=== PATIENT | female | born 1965 ===

== ENCOUNTER 2017-06-14 05:17 | Emergency (ER) | payer SELFPAY ==
[~2017-06-14] VITALS: Ht 157.5 cm; Wt 55.0 kg
[2017-06-14 05:26] VITALS: BP 125/75; PULSE 94; RESP 18; TEMP 98.7; O2SAT 100
--- NOTE | 2017-06-14 06:33 | RADRPT ---
EXAM DATE/TIME: 06/14/2017 06:08 [place] COMPARISON: No previous studies available for comparison. INDICATIONS : Right foot pain from a fall. MEDICAL HISTORY : None. SURGICAL HISTORY : None. ENCOUNTER: Initial ACUITY: 1 day PAIN SCORE: 8/10 LOCATION: Right foot FINDINGS: 3 views of the right foot demonstrate an oblique minimally displaced fracture of the fifth digit prox imal phalanx. Fracture line extends through the distal medial metaphysis and epiphysis and extends in to the interphalangeal joint. No other fracture or dislocation is identified. Lisfranc joint appears intact. No soft tissue abnormality or radiopaque foreign body is identified. CONCLUSION: There is an acute minimally displaced oblique fracture of the fifth distal digit proximal phalanx, as above. Todd Tristan MD on June 14, 2017 at 6:29 Board Certified Radiologist. This report was verified electronically.
--- NOTE | 2017-06-14 06:37 | PD ---
HPI Chief Complaint: Injury Time Seen by Provider: 05:33 Travel History International Travel<30 days: No Contact w/Intl Traveler<30days: No Traveled to known affect area: No History of Present Illness HPI 52-year-old white female presents emergency department for evaluation of right foot pain. She states that she had an injury yesterday. She states that she does a lot of yoga and she has been having pain with her foot. She has tenderness of the little toe into the forefoot. She denies any sensory changes. No numbness or tingling PFSH Past Medical History Arthritis: Yes (osteoprosis) Diminished Hearing: No Tetanus Vaccination: < 5 Years Influenza Vaccination: No ?: Not Past Surgical History Appendectomy: Yes Hysterectomy: Yes Social History Alcohol Use: No Tobacco Use: No Substance Use: No Allergies-Medications (Allergen,Severity, Reaction): Coded Allergies: codeine (Verified Allergy, Severe, 06/14/17) hives vomiting itching ibuprofen (Verified Allergy, Severe, 06/14/17) hives vomiting itching latex (Verified Allergy, Severe, 06/14/17) rash oxycodone (Verified Allergy, Severe, 06/14/17) hives vomiting itching Review of Systems Except as stated in HPI: all other systems reviewed are Neg Physical Exam Narrative GENERAL: This is a well-nourished, well-developed patient, in no apparent distress. SKIN: No rashes, ecchymoses or lesions. Warm and dry. HEAD: Atraumatic. Normocephalic. EYES: PERRL, EOMI, no discharge or injection. No scleral icterus. EARS: Clear NOSE: Nasal turbinates appear normal. THROAT: Mucosa pink and moist. Airway patent. NECK: Trachea midline. supple, moves head freely. LUNGS: Clear to auscultation. CV: Regular in rhythm. ABDOMEN: Soft nontender. EXT: No clubbing cyanosis. Examination of the right foot reveals tenderness in the little toe and fifth metatarsal. Skin is intact. Some mild ecchymosis. Minimal swelling. Data Data Last Documented VS Vital Signs Date Time Temp Pulse Resp B/P (MAP) Pulse Ox O2 Delivery O2 Flow Rate FiO2 06/14/17 05:26 98.7 94 18 125/75 (92) 100 Orders Orders Foot, Complete ([email or web address]) (06/14/17 05:46) Ice/Cold Pack (06/14/17 05:46) Ed Discharge Order (06/14/17 06:33) MDM Medical Decision Making Medical Screen Exam Complete: Yes Emergency Medical Condition: Yes Medical Record Reviewed: Yes Interpretation(s) Right foot: Positive fracture of the little toe. No other fracture identified Differential Diagnosis MDM: High Differential diagnoses: Fracture, sprain, strain, dislocation, contusion, neurovascular injury Narrative Course Right little toe fracture Diagnosis Primary Impression: Right little toe fracture Patient Instructions: General Instructions Additional Instructions: Rest. Elevation. Ice. Tylenol for pain. Kwesi tape the fourth toe to the fifth toe. Comfortable shoes Follow-up with a manager business information in 1 week. Med/Other Pt SpecificInfo: Orthopedic Instructions Disposition: 01 DISCHARGE HOME Condition: Stable Sage Rodriguez Jun 14, 2017 06:37
== END 2017-06-14 07:15 | disposition home or self-care (01) ==
LOC: NEPD 05:17
DX: S92.501A Displaced unspecified fracture of right lesser toe(s), initial encounter for closed fracture (principal); X50.1XXA Overexertion from prolonged static or awkward postures, initial encounter; Y93.B9 Activity, other involving muscle strengthening exercises
CPT/HCPCS: 73630; 99283